=== PATIENT | female | born 1965 | race Caucasian/White ===

== ENCOUNTER 2017-09-08 04:15 | Emergency (ER) | payer OTHER ==
[2017-09-08] MEDS: DIPHENHYDRAMINE 50 MG INJ IV (04:54)
[2017-09-08] MEDS: METOCLOPRAMIDE 10 MG INJ IV (04:54)
== END 2017-09-08 06:34 | disposition home or self-care (01) ==
LOC: FTE 04:15
DX: R51 Headache (principal); I10 Essential (primary) hypertension; J45.901 Unspecified asthma with (acute) exacerbation
CPT/HCPCS: 70450; 96374; 96375; 99285-25

== ENCOUNTER 2019-01-19 14:01 | Emergency (ER) | payer OTHER | END 2019-01-19 16:22 | disposition home or self-care (01) | LOC: FTE 16:22 | DX: S61.211A Laceration without foreign body of left index finger without damage to nail, initial encounter (principal); I10 Essential (primary) hypertension; J45.909 Unspecified asthma, uncomplicated; W26.0XXA Contact with knife, initial encounter; Y92.9 Unspecified place or not applicable | CPT/HCPCS: 12001; 99282-25 ==

== ENCOUNTER 2019-01-21 20:50 | Emergency (ER) | payer OTHER | END 2019-01-21 23:54 | disposition home or self-care (01) | LOC: FTE 20:50 | DX: Z48.01 Encounter for change or removal of surgical wound dressing (principal); I10 Essential (primary) hypertension; J45.909 Unspecified asthma, uncomplicated | CPT/HCPCS: 99281; Z7502 ==